=== PATIENT | male | born 1990 | race Caucasian/White ===

== ENCOUNTER 2024-06-15 17:54 | Emergency (ER) | payer BC, SELFPAY ==
--- NOTE | ~2024-06-15 | XR_ITS ---
EXAMINATION: XR chest 2V DATE: 06/15/2024 18:51 INDICATION: Chest pain TECHNIQUE: PA and lateral views of the chest were obtained. COMPARISON: None FINDINGS: The lungs are clear with no focal airspace opacities, pulmonary edema, pleural effusion or pneumothor ax. The cardiomediastinal silhouette is normal. Mild to moderate thoracic spondylosis. IMPRESSION: 1. No acute cardiopulmonary disease. Reviewed, dictated and finalized at location A.
[2024-06-15 17:58] VITALS: BP 154/93; PULSE 104; RESP 18; TEMP 36.5; O2SAT 98
--- NOTE | 2024-06-15 18:43 | ECG_ITS ---
Test Date: 2024-06-15 19:21:14 Measurements Intervals [place] Rate: 84 P: 21 [place]: 145 QRS: 9 QRSD: 93 T: 40 QT: 337 QTc: 398 Interpretive Statements SINUS RHYTHM No previous ECG available for comparison Electronically Signed On 06-16-2024 09:38:57 CDT by Evy Prieto M.D.
--- NOTE | 2024-06-15 18:44 | ED_ITS ---
HPI - Recheck/Abnormal Lab/Rx General Chief Complaint: Recheck/Abnormal Lab/Rx Stated Complaint: htn Time Seen by Provider: 06/15/24 18:44 Focused HPI: This is a 34-year-old male that presents to the emergency department for chest pain. Reports he had an episode of chest pain earlier today which prompted him to take his blood pressure. His blood pressure has been running in the 140s to 150 systolic all day. This concerned him and prompted him to be seen. He has not have known history of hypertension. Reports he feels like his breathing is off . GENERAL: Well-appearing, well-nourished, and in no acute distress. HEAD: Normocephalic, atraumatic. CHEST: Clear to auscultation. ?No respiratory distress. HEART: Regular rate and rhythm.? NEURO: ?Alert and oriented x3. Patient screened in triage and initial orders placed.? ?Additional care and disposition to be based upon?diagnostic testing and treatment. Related Data Allergies Allergy/AdvReac Type Severity Reaction Status Date / Time Sulfa (Sulfonamide AdvReac Unknown Verified 06/15/24 17:58 Antibiotics) Course Vital Signs Vital signs: Vital Signs Temperature 97.7 F 06/15/24 17:58 Pulse Rate 104 H 06/15/24 17:58 Respiratory Rate 18 06/15/24 17:58 Blood Pressure 154/93 H 06/15/24 17:58 Pulse Oximetry 98 06/15/24 17:58 Temperature 97.7 F 06/15/24 17:58 Pulse Rate 104 H 06/15/24 17:58 Respiratory Rate 18 06/15/24 17:58 Blood Pressure 154/93 H 06/15/24 17:58 Pulse Oximetry 98 06/15/24 17:58 Discharge Plan Discharge Follow-up/Referrals: PHYSICIAN,GLUER AND SLICER HAND [Primary Care Provider] -
--- NOTE | 2024-06-15 19:19 | ED.CHESTPAIN ---
HPI - Chest Pain General Chief Complaint: Recheck/Abnormal Lab/Rx Stated Complaint: htn Time Seen by Provider: 06/15/24 18:44 History of Present Illness HPI narrative: Pt has been with his father through recent hospitalization and rehab so has been under a fair amount of stress. Pt says when he dropped off his father this morning about 0800 noticed some heaviness in his left chest. He checked his BP and it was 150's/90's. He checked his Bp every 30 minutes all day and it was around this range though the bottom number got up to the low 100's. Pt has no PCP and has not had any routine medical care. Related Data Allergies Allergy/AdvReac Type Severity Reaction Status Date / Time Sulfa (Sulfonamide AdvReac Unknown Verified 06/15/24 17:58 Antibiotics) Review of Systems Review of Systems: All systems reviewed & are unremarkable except as noted in HPI and below Exam Const: General: healthy appearing and no acute distress Nutritional Appearance: well nourished Orientation/consciousness: patient oriented x3 Limitations: no limitations Chest: Chest palpation & inspection: tenderness (mild upper left chest tenderness to palpation) Resp: Effort & Inspection: normal respiratory effort Auscultation: clear to auscultation bilaterally Cardio: Rate: regular rate Rhythm: regular rhythm GI: GI Palp: Yes Soft to palpation and No Tenderness to palpation present (GI) Auscultation: normal bowel sounds Skin: General skin exam: normal color Wounds: no wounds Neuro: General: moves all extremities and CN's II-XI intact bilaterally Cranial nerves: Yes Nystagmus not present Speech: normal speech Extrem: General: normal to inspection and no clubbing, cyanosis or edema Psych: Mental Status: mental status grossly normal Affect: normal affect Attitude: cooperative Course Vital Signs Vital signs: Vital Signs Temperature 97.7 F 06/15/24 17:58 Pulse Rate 104 H 06/15/24 17:58 Respiratory Rate 18 06/15/24 17:58 Blood Pressure 154/93 H 06/15/24 17:58 Pulse Oximetry 98 06/15/24 17:58 Temperature 98.1 F 06/15/24 19:21 Pulse Rate 87 06/15/24 20:30 Respiratory Rate 19 06/15/24 20:30 Blood Pressure 139/93 H 06/15/24 20:30 Pulse Oximetry 98 10/23/24 20:30 Oxygen Delivery Room Air 06/15/24 19:21 MDM - Chest Pain MDM Narrative Medical decision making narrative: pt has had atypical CP since 0800 and BP has been elevated with frequent checking all day. Doubt cardaic etiology but will get ekg and labs and make sure kidneys and trop and cxr all ok. Lab Data 06/15/24 19:24 06/15/24 19:24 Labs: Lab Results 06/15/24 Range/Units 19:24 WBC 10.2 H (4.5-10.0) K/mm3 RBC 5.04 (4.6-6.20) M/mm3 Hgb 15.8 (14.0-18.0) g/dL Hct 44.8 (42.0-52.0) % MCV 88.9 (80-100) fl MCH 31.3 (26-34) pg MCHC 35.3 (32-36) g/dl RDW 12.7 (11.5-14.5) % Plt Count 249 (150-375) k/mm3 MPV 9.5 (7.4-10.4) fl Immature Gran % (Auto) 0.4 (0-0.5) % Neut % (Auto) 56.4 (45.5-73.1) % Lymph % (Auto) 29.6 (18.3-44.2) % [place] % (Auto) 8.6 H (2.6-8.5) % Eos % (Auto) 4.8 H (0-4.4) % Baso % (Auto) 0.2 (0.2-1.2) % Lymph # (Auto) 3.02 (0.9-3.2) K/mm3 [place] # (Auto) 0.9 H (0.1-0.6) K/mm3 Eos # (Auto) 0.5 H (0-0.3) K/mm3 Baso # (Auto) 0.0 (0.0-0.1) K/mm3 Abs Immat Gran (auto) 0.04 H (0.00-0.031) K/mm3 Absolute Neuts (auto) 5.8 (1.3-6.7) K/mm3 Absolute Nucleated RBC 0.000 (0.0-0.012) K/mm3 Nucleated RBC % 0.0 (0.0-0.2) % PT 13.4 (11.1-14.7) Seconds INR 1.0 APTT 27.5 (22.3-36.8) Seconds Sodium 139 (137-145) mmol/L Potassium 3.8 (3.4-5.0) mmol/L Chloride 103 (98-107) mmol/L Carbon Dioxide 24 (22-30) mmol/L Anion Gap 12 (4-12) mmol/L BUN 16 (9-20) mg/dL Creatinine 0.90 (0.7-1.3) mg/dL Estim Creat Clear Calc 114 ml/min Estimated GFR > 60 (59 - ) Glucose 74 (65-110) mg/dL Calcium 9.4 (8.4-10.2) mg/dL Total Bilirubin 0.4 (0.2-1.3) mg/dL AST 33 (17-59) U/L ALT 35 (6-50) U/L Alkaline Phosphatase 87 (38-126) U/L Troponin I < 0.012 (0.000-0.034) ng/mL Total Protein 8.0 (6.3-8.2) g/dL Albumin 4.8 (3.5-5.1) g/dL Lipase 67 (23-300) U/L ECG Data EKG #1: Interpretation: nsr rate [address] or t wave changes Discharge Plan Discharge Clinical Impression: Hypertension, Atypical chest pain Patient Disposition: Home, Self-Care Condition: Improved Instructions: Antibiotic Form, Hypertension (ED) Additional Instructions: check BP for several days at different times during day and after sitting for a bit. If remains elevated, make appointment with PCP Follow-up/Referrals: PHYSICIAN,STORES CLERK [Non-Staff] - Estevan Moulton MD [Physician] -
[2024-06-15 19:21] VITALS: BP 146/92; PULSE 88; RESP 18; TEMP 36.7; O2SAT 100; O2SAT 96
[2024-06-15 19:31] LABS: Basophils Percent Auto 0.2 % (0.2-1.2); Eosinophils Absolute Auto 0.5 K/mm3 (0-0.3); Eosinophils Percent Auto 4.8 % (0-4.4); Hematocrit 44.8 % (42.0-52.0); Hemoglobin 15.8 g/dL (14.0-18.0); Immature Granulocyte Absolute 0.04 K/mm3 (0.00-0.031); Immature Granulocyte Percent A 0.4 % (0-0.5); Lymphocytes Absolute Auto 3.02 K/mm3 (0.9-3.2); Lymphocytes Percent Auto 29.6 % (18.3-44.2); Mean Corpuscular HGB Conc 35.3 g/dl (32-36); Mean Corpuscular Hemoglobin 31.3 pg (26-34); Mean Corpuscular Volume 88.9 fl (80-100); Mean Platelet Volume 9.5 fl (7.4-10.4); Monocytes Absolute Auto 0.9 K/mm3 (0.1-0.6); Monocytes Percent Auto 8.6 % (2.6-8.5); Neutrophils Absolute Auto 5.8 K/mm3 (1.3-6.7); Neutrophils Percent Auto 56.4 % (45.5-73.1); Platelet Count Result 249 k/mm3 (150-375); Red Blood Count 5.04 M/mm3 (4.6-6.20); Red Cell Distribution Width 12.7 % (11.5-14.5); White Blood Count 10.2 K/mm3 (4.5-10.0)
[2024-06-15 19:41] LABS: Alanine Aminotransferase 35 U/L (6-50); Albumin Level 4.8 g/dL (3.5-5.1); Alkaline Phosphatase 87 U/L (38-126); Anion Gap 12 mmol/L (4-12); Aspartate Amino Transferase 33 U/L (17-59); Bilirubin,Total 0.4 mg/dL (0.2-1.3); Blood Urea Nitrogen 16 mg/dL (9-20); Calcium 9.4 mg/dL (8.4-10.2); Carbon Dioxide 24 mmol/L (22-30); Chloride 103 mmol/L (98-107); Estimated CRCL calculation 114 ml/min; Estimated Glomerular Filt Rate > 60; Glucose 74 mg/dL (65-110); Lipase 67 U/L (23-300); Partial Thromboplastin Time 27.5 Seconds (22.3-36.8); Potassium 3.8 mmol/L (3.4-5.0); Prothrombin Time 13.4 Seconds (11.1-14.7); Sodium 139 mmol/L (137-145)
[2024-06-15 19:52] LABS: Troponin I < 0.012 ng/mL (0.000-0.034)
[2024-06-15 20:30] VITALS: BP 139/93; PULSE 87; RESP 19; O2SAT 98
== END 2024-06-15 20:32 | disposition home or self-care (01) ==
PROVIDERS: Physician Assistant; Emergency Provider Emergency Medicine
DX: I10 Essential (primary) hypertension (principal); R07.89 Other chest pain
CPT/HCPCS: 36415; 71046; 80053; 83690; 84484; 85025; 85610; 85730; 93005; 99284

== ENCOUNTER 2024-06-20 11:26 | Emergency (ER) | payer BC, SELFPAY ==
--- NOTE | ~2024-06-20 | XR_ITS ---
EXAMINATION: XR wrist LT min 3V DATE: 06/20/2024 14:28 INDICATION: Left wrist pain. TECHNIQUE: 4 views of left wrist were obtained. COMPARISON: None. FINDINGS: Alignment is normal. No fracture. Joint spaces are normal. IMPRESSION: 1. Normal left wrist. Reviewed, dictated and finalized at location B. IMPRESSION: 1. Normal left wrist.
--- NOTE | ~2024-06-20 | CT_ITS ---
EXAMINATION: CTA brain carotid DATE: 06/20/2024 14:20 INDICATION: Headache. Blurry vision. TECHNIQUE: Computed tomographic angiography (CTA) of the head was performed without and with 100 mL O [id number] intravenous contrast. CTA of the neck was performed with intravenous contrast. Automated exposure control and iterative reconstruction technique were employed. The dose-length product was 1 750.01 mGy-cm. Maximum intensity projection and volume rendered 3D-reconstructions were created by bernarda schmid technologist on a separate workstation. COMPARISON: None. FINDINGS: HEAD CTA: There is no intracranial hemorrhage, acute infarction, or abnormal intracranial mass lesion . The ventricles are normal in size. The orbits are normal. There is mild mucosal thickening in the p aranasal sinuses. The mastoid air cells are normal. The vertebral arteries are codominant. There is n o significant stenosis of basilar artery or the posterior cerebral arteries. There is no significant stenosis of the intracranial internal carotid arteries or anterior or middle cerebral arteries. Anter ior communicating artery is normal. There is no aneurysm. NECK CTA: There are no pathologically enlarged lymph nodes. There is no significant stenosis of the v ertebral arteries. There is no visible plaque in the proximal internal carotid. There is 0% stenosis of the proximal right internal carotid artery relative to normal distal artery lumen diameter (NASCET criteria). There is 0% stenosis of the proximal left internal carotid artery relative to normal dist al artery lumen diameter. There is mild cervical spondylosis. IMPRESSION: 1. Normal brain. No aneurysm or significant intracranial arterial stenosis 2. 0% stenosis of the proximal internal carotid arteries relative to normal distal artery lumen diame ters (NASCET criteria). Reviewed, dictated and finalized at location B. IMPRESSION: 1. Normal brain. No aneurysm or significant intracranial arterial stenosis 2. 0% stenosis of the proximal internal carotid arteries relative to normal dis avtar artery lumen diameters (NASCET criteria).
--- NOTE | ~2024-06-20 | XR_ITS ---
EXAMINATION: XR chest 2V DATE: 06/20/2024 14:28 INDICATION: Chest pressure. TECHNIQUE: Frontal and lateral views of the chest were obtained. COMPARISON: Chest 2 views 06/15/2024 FINDINGS: There is no pneumonia, pleural effusion, or pneumothorax. The heart size is normal. IMPRESSION: 1. No acute cardiopulmonary disease. Reviewed, dictated and finalized at location B.
--- NOTE | ~2024-06-20 | XR_ITS ---
EXAMINATION: XR shoulder LT min 2V DATE: 06/20/2024 14:28 INDICATION: Left arm tingling. Chest pressure. TECHNIQUE: 4 views of left shoulder were obtained. COMPARISON: None. FINDINGS: Alignment is normal. No fracture. Joint spaces are normal. IMPRESSION: 1. Normal left shoulder. Reviewed, dictated and finalized at location B. IMPRESSION: 1. Normal left shoulder.
[2024-06-20 11:36] VITALS: BP 145/92; PULSE 78; RESP 15; TEMP 36.4; O2SAT 99
--- NOTE | 2024-06-20 12:25 | ECG_ITS ---
Test Date: 2024-06-20 13:29:27 Measurements Intervals [place] Rate: 74 P: 26 [place]: 159 QRS: 36 QRSD: 101 T: 44 QT: 376 QTc: 418 Interpretive Statements SINUS RHYTHM Compared to ECG 06/15/2024 19:21:14 No significant changes Electronically Signed On 06-20-2024 13:33:53 CDT by Max Bill M.D.
[2024-06-20 12:58] LABS: Basophils Percent Auto 0.3 % (0.2-1.2); Eosinophils Absolute Auto 0.4 K/mm3 (0-0.3); Hematocrit 42.8 % (42.0-52.0); Hemoglobin 14.9 g/dL (14.0-18.0); Immature Granulocyte Absolute 0.03 K/mm3 (0.00-0.031); Immature Granulocyte Percent A 0.4 % (0-0.5); Lymphocytes Absolute Auto 2.01 K/mm3 (0.9-3.2); Lymphocytes Percent Auto 28.9 % (18.3-44.2); Mean Corpuscular HGB Conc 34.8 g/dl (32-36); Mean Corpuscular Hemoglobin 31.6 pg (26-34); Mean Corpuscular Volume 90.7 fl (80-100); Mean Platelet Volume 9.6 fl (7.4-10.4); Monocytes Absolute Auto 0.5 K/mm3 (0.1-0.6); Monocytes Percent Auto 6.9 % (2.6-8.5); Neutrophils Absolute Auto 4.1 K/mm3 (1.3-6.7); Neutrophils Percent Auto 58.5 % (45.5-73.1); Platelet Count Result 237 k/mm3 (150-375); Red Blood Count 4.72 M/mm3 (4.6-6.20); Red Cell Distribution Width 12.6 % (11.5-14.5)
[2024-06-20] MEDS: KETOROLAC (*BKC) 60 MG/2 ML VIAL IM (13:00)
[2024-06-20 13:08] LABS: Alanine Aminotransferase 38 U/L (6-50); Albumin Level 4.6 g/dL (3.5-5.1); Alkaline Phosphatase 90 U/L (38-126); Anion Gap 9 mmol/L (4-12); Aspartate Amino Transferase 40 U/L (17-59); Bilirubin,Total 0.5 mg/dL (0.2-1.3); Blood Urea Nitrogen 14 mg/dL (9-20); Calcium 9.2 mg/dL (8.4-10.2); Carbon Dioxide 26 mmol/L (22-30); Chloride 105 mmol/L (98-107); Estimated CRCL calculation 130 ml/min; Estimated Glomerular Filt Rate > 60; Glucose 103 mg/dL (65-110); Potassium 3.9 mmol/L (3.4-5.0); Prothrombin Time 13.1 Seconds (11.1-14.7); Sodium 140 mmol/L (137-145)
[2024-06-20 13:09] LABS: Partial Thromboplastin Time 24.8 Seconds (22.3-36.8)
[2024-06-20 13:19] LABS: Troponin I < 0.012 ng/mL (0.000-0.034)
--- NOTE | 2024-06-20 13:21 | ED.GENADULT ---
HPI - General Adult General Chief complaint: Eye Problems Stated complaint: blurry vision, back pain Time Seen by Provider: 06/20/24 12:01 History of Present Illness HPI narrative: Patient is a 34-year-old male who presents ER with multiple complaints. He was sent here on the recommendation of his PCP. He was seen here on 06/15/2024 as well. During his last ER visit he was seen for elevated blood pressures. Patient has had increased anxiety and concern about his health since his dad became diagnosed with Parkinson's and began suffering other medical issues. Patient reports that recently when he uses his left arm and grabs things against developed numbness and tingling into the fingers and pain into the shoulder and left side. He also has some pain in the left posterior shoulder/ back. No known trauma. No exertional chest pain or back pain. No nausea or vomiting. Reports he has also had mild headache with occasional vision change in left eye. No history of migraine. No history of CVA. His PCP wanted him to have a CT scan of the head. Related Data Allergies Allergy/AdvReac Type Severity Reaction Status Date / Time Sulfa (Sulfonamide AdvReac Unknown Verified 06/15/24 17:58 Antibiotics) Review of Systems Review of Systems: All systems reviewed & are unremarkable except as noted in HPI and below Constitutional: Constitutional: Reports no additional constitutional complaints ENT: Reports system reviewed and no additional complaints, except as documented PMFSH Past Medical History Medical History (Updated 06/20/24 @ 16:36 by Jose Patel MD) Healthy adult male Surgical History Surgical History (Updated 06/20/24 @ 15:42 by Jose Patel MD) No pertinent past surgical history Exam Narrative: GENERAL: Well-appearing, well-nourished, and in no acute distress. HEAD: Normocephalic, atraumatic. EYES: PERRL and EOMI. 20/30 visual acuity in each eye. ENT: Mucous membranes moist. NECK: Supple. tender palpation left trapezius musculature without midline tenderness. CHEST: Clear to auscultation. No respiratory distress. HEART: Regular rate and rhythm. Normal peripheral pulses. EXTREMITIES: Normal range of motion. No edema. Positive carpal tunnel compression test left wrist. SKIN: Warm, dry, no rash. NEURO: Alert and oriented x3. PSYCH: Normal mood and affect. Course Vital Signs Vital signs: Vital Signs Temperature 97.6 F 06/20/24 11:36 Pulse Rate 78 06/20/24 11:36 Respiratory Rate 15 06/20/24 11:36 Blood Pressure 145/92 H 06/20/24 11:36 Pulse Oximetry 99 06/20/24 11:36 Oxygen Delivery Room Air 06/20/24 11:36 Temperature 97.6 F 06/20/24 11:36 Pulse Rate 69 06/20/24 14:29 Respiratory Rate 15 06/20/24 14:29 Blood Pressure 142/95 H 06/20/24 14:29 Pulse Oximetry 97 06/20/24 14:29 Oxygen Delivery Room Air 06/20/24 11:36 Medical Decision Making Vital Signs Vital Signs: Vital Signs Temperature 97.6 F 06/20/24 11:36 Pulse Rate 78 06/20/24 11:36 Respiratory Rate 15 06/20/24 11:36 Blood Pressure 145/92 H 06/20/24 11:36 Pulse Oximetry 99 06/20/24 11:36 Oxygen Delivery Room Air 06/20/24 11:36 Temperature 97.6 F 06/20/24 11:36 Pulse Rate 69 06/20/24 14:29 Respiratory Rate 15 06/20/24 14:29 Blood Pressure 142/95 H 06/20/24 14:29 Pulse Oximetry 97 06/20/24 14:29 Oxygen Delivery Room Air 06/20/24 11:36 Lab Data 06/20/24 12:51 06/20/24 12:51 Labs: Lab Results 06/20/24 Range/Units 12:51 WBC 7.0 (4.5-10.0) K/mm3 RBC 4.72 (4.6-6.20) M/mm3 Hgb 14.9 (14.0-18.0) g/dL Hct 42.8 (42.0-52.0) % MCV 90.7 (80-100) fl MCH 31.6 (26-34) pg MCHC 34.8 (32-36) g/dl RDW 12.6 (11.5-14.5) % Plt Count 237 (150-375) k/mm3 MPV 9.6 (7.4-10.4) fl Immature Gran % (Auto) 0.4 (0-0.5) % Neut % (Auto) 58.5 (45.5-73.1) % Lymph % (Auto) 28.9 (18.3-44.2) % [place] % (Auto) 6.9 (2.6-8.5) % Eos % (Auto) 5.0 H (0-4.4) % Baso % (Auto) 0.3 (0.2-1.2) % Lymph # (Auto) 2.01 (0.9-3.2) K/mm3 [place] # (Auto) 0.5 (0.1-0.6) K/mm3 Eos # (Auto) 0.4 H (0-0.3) K/mm3 Baso # (Auto) 0.0 (0.0-0.1) K/mm3 Abs Immat Gran (auto) 0.03 (0.00-0.031) K/mm3 Absolute Neuts (auto) 4.1 (1.3-6.7) K/mm3 Absolute Nucleated RBC 0.000 (0.0-0.012) K/mm3 Nucleated RBC % 0.0 (0.0-0.2) % PT 13.1 (11.1-14.7) Seconds INR 1.0 APTT 24.8 (22.3-36.8) Seconds Sodium 140 (137-145) mmol/L Potassium 3.9 (3.4-5.0) mmol/L Chloride 105 (98-107) mmol/L Carbon Dioxide 26 (22-30) mmol/L Anion Gap 9 (4-12) mmol/L BUN 14 (9-20) mg/dL Creatinine 0.80 (0.7-1.3) mg/dL Estim Creat Clear Calc 130 ml/min Estimated GFR > 60 (59 - ) Glucose 103 (65-110) mg/dL Calcium 9.2 (8.4-10.2) mg/dL Total Bilirubin 0.5 (0.2-1.3) mg/dL AST 40 (17-59) U/L ALT 38 (6-50) U/L Alkaline Phosphatase 90 (38-126) U/L Troponin I < 0.012 (0.000-0.034) ng/mL Total Protein 8.0 (6.3-8.2) g/dL Albumin 4.6 (3.5-5.1) g/dL Imaging Data Radiologist's impression: ITS Impressions Head/Neck CTA 06/20/24 14:20 IMPRESSION: 1. Normal brain. No aneurysm or significant intracranial arterial stenosis 2. 0% stenosis of the proximal internal carotid arteries relative to normal distal artery lumen diameters (NASCET criteria). Chest X-Ray 06/20/24 14:37 IMPRESSION: 1. No acute cardiopulmonary disease. Shoulder X-Ray 06/20/24 14:37 IMPRESSION: 1. Normal left shoulder. Wrist X-Ray 06/20/24 14:38 IMPRESSION: 1. Normal left wrist. Discharge Plan Discharge Clinical Impression: Carpal tunnel syndrome, Shoulder pain, Headache Patient Disposition: Home, Self-Care Condition: Stable Instructions: Carpal Tunnel Syndrome (DC), General Headache (ED) Additional Instructions: Return ER if you have chest pain with exertion, you cannot keep down food /water / medication, or you have loss of vision. Prescriptions: New naproxen 375 mg tablet 375 mg PO BID Qty: 14 0RF Follow-up/Referrals: Estevan Moulton MD [Physician] - 1 Week UNKNOWN,DOCTOR [Primary Care Provider] -
[2024-06-20 14:29] VITALS: BP 142/95; PULSE 69; RESP 15; O2SAT 97
[2024-06-20 17:18] VITALS: BP 144/90; PULSE 72; RESP 14; O2SAT 99
== END 2024-06-20 17:26 | disposition home or self-care (01) ==
PROVIDERS: Emergency Provider Emergency Medicine
DX: M25.512 Pain in left shoulder (principal); R51.9 Headache, unspecified; G56.02 Carpal tunnel syndrome, left upper limb
CPT/HCPCS: 36415; 70496; 70498; 71046; 73030; 73110; 80053; 84484; 85025; 85610; 85730; 93005; 96372; 99284; J1885; Q9967

== ENCOUNTER 2024-08-08 17:07 | Emergency (ER) | payer BC, SELFPAY ==
--- NOTE | ~2024-08-08 | CT_ITS ---
EXAMINATION: CT brain wo con DATE: 08/08/2024 19:38 INDICATION: Headache. TECHNIQUE: Computed tomography (CT) of the head was performed without intravenous contrast. The mA wa s adjusted according to patient size. Iterative reconstruction technique was employed. The dose-lengt h product was 605.33 mGy-cm. COMPARISON: Head CT 06/20/2024 FINDINGS: There is no intracranial hemorrhage, acute infarction, or abnormal intracranial mass lesion . The ventricles are normal in size. The orbits are normal. There is mucosal thickening in the parana cale sinuses. The mastoid air cells are normal. IMPRESSION: 1. Normal brain. Reviewed, dictated and finalized at location A. [facility] IMPRESSION: 1. Normal brain.
[2024-08-08 17:55] VITALS: BP 138/88; PULSE 88; RESP 18; TEMP 36.8; O2SAT 97
--- NOTE | 2024-08-08 17:59 | ED_ITS ---
HPI - Headache General Chief Complaint: Headache <Jamie SaldañaHALLIEN - Last Filed: 08/08/24 18:00> Stated Complaint: HEADACHE,SWOLLEN LYMPH NODES,N/V <Jamie BadillonasreenmanojSAULO - Last Filed: 08/08/24 18:00> Time Seen by Provider: 08/08/24 19:13 <Jamie BadillonasreenmanojHALLIEN - Last Filed: 08/08/24 18:00> 34-year-old male presents with headache, light sensitive, nausea vomiting, subjective fever since Thursday. patient denies any medical problem. no relief with [id number] medication GENERAL: Well-appearing, well-nourished, and in no acute distress. HEAD: Normocephalic, atraumatic. EYES: PERRLA and EOMI. photophobia ENT: Nares clear, no rhinorrhea or epistaxis. Mucous membranes moist. NECK: Supple. CHEST: Clear to auscultation. No respiratory distress. HEART: Regular rate and rhythm. No murmur heard. Normal peripheral pulses. ABDOMEN: Soft, nontender, nondistended, normal active bowel sounds. nausea EXTREMITIES: Normal range of motion. No edema. SKIN: Warm, dry, no rash. NEURO: No focal deficits. Alert and oriented x3. PSYCH: Normal mood and affect. <Jamie CroninrabiamanojSAULO - Last Filed: 08/08/24 18:00> 34-year-old male presents with headache, light sensitive, nausea, vomiting, subjective fever since Thursday. patient denies any medical problem. no relief with [id number] medication. Reports history of headaches, but they had improved after recently getting glasses GENERAL: Well-appearing, well-nourished, and in no acute distress. HEAD: Normocephalic, atraumatic. EYES: PERRLA and EOMI. photophobia ENT: Nares clear, no rhinorrhea or epistaxis. Mucous membranes moist. NECK: Supple. CHEST: Clear to auscultation. No respiratory distress. HEART: Regular rate and rhythm. No murmur heard. Normal peripheral pulses. ABDOMEN: Soft, nontender, nondistended, normal active bowel sounds. nausea EXTREMITIES: Normal range of motion. No edema. SKIN: Warm, dry, no rash. NEURO: No focal deficits. Alert and oriented x3. PSYCH: Normal mood and affect. <Nasreen Ballard PA-C - Last Filed: 08/09/24 01:12> Related Data Allergies/Adverse Reactions: Allergies Allergy/AdvReac Type Severity Reaction Status Date / [facility] Allergy Mild Unknown Verified 08/08/24 17:09 Sulfa (Sulfonamide AdvReac Unknown Verified 08/08/24 17:09 Antibiotics) <Jamie SAULO Saldaña - Last Filed: 08/08/24 18:00> Review of Systems 2 Review of Systems: CONSTITUTIONAL: Reports subjective fever EYES: Denies visual changes GASTROINTESTINAL: Reports nausea, vomiting NEUROLOGIC: Reports headache. Denies numbness, or weakness. <Nasreen Ballard PA-C - Last Filed: 08/09/24 01:12> All systems reviewed & are unremarkable except as noted in HPI and below < Nasreen Ballard PA-C - Last Filed: 08/09/24 01:12> PMFSH Past Medical History Medical History: Medical History (Updated 08/09/24 @ 01:09 by Nasreen Ballard PA-C) Healthy adult male <Jamiemanoj Saldaña APRN - Last Filed: 08/08/24 18:00> Surgical History Surgical History: Surgical History (Updated 06/20/24 @ 15:42 by Jose Patel MD) No pertinent past surgical history <Jamie Saldaña APRN - Last Filed: 08/08/24 18:00> Social History Social History: Social History (Updated 08/08/24 @ 19:32 by Nasreen Ballard PA-C) Smoking status: Never smoker <Jamie Saldaña APRN - Last Filed: 08/08/24 18:00> Exam 2 Narrative: GENERAL: Well-appearing, well-nourished, and in no acute distress. HEAD: Normocephalic, atraumatic. EYES: PERRLA and EOMI. ENT: Nares clear, no rhinorrhea or epistaxis. Mucous membranes moist. Oropharynx without tonsillar hypertrophy exudate or other lesions. Bilateral TMs pearly paredes non-bulging NECK: Supple. No adenopathy or masses. Normal ROM CHEST: Clear to auscultation. No respiratory distress. No wheezes rales or rhonchi HEART: Regular rate and rhythm. No murmur heard. Normal peripheral pulses. EXTREMITIES: Normal range of motion. No edema. Strength equal in bilateral upper and lower extremities (5/5) SKIN: Warm, dry, no rash. NEURO: No focal deficits. Alert and oriented x3. CN II-XII grossly intact PSYCH: Normal mood and affect <Nasreen Ballard PA-C - Last Filed: 08/09/24 01:12> Course Course Emergency Course: patient updated on workup and agrees with plan of care <Nasreen Ballard PA-C - Last Filed: 08/09/24 01:12> Vital Signs Vital signs: Vital Signs Temperature 98.2 F 08/08/24 17:55 Pulse Rate 88 08/08/24 17:55 Respiratory Rate 18 08/08/24 17:55 Blood Pressure 138/88 08/08/24 17:55 Pulse Oximetry 97 08/08/24 17:55 Oxygen Delivery Room Air 08/08/24 17:55 Temperature 98.2 F 08/08/24 17:55 Pulse Rate 92 08/08/24 22:31 Respiratory Rate 16 08/08/24 22:31 Blood Pressure 146/68 H 08/08/24 22:31 Pulse Oximetry 98 08/08/24 22:31 Oxygen Delivery Room Air 08/08/24 17:55 <Jamie Saldaña APRN - Last Filed: 08/08/24 18:00> Vital Signs Temperature 98.2 F 08/08/24 17:55 Pulse Rate 88 08/08/24 17:55 Respiratory Rate 18 08/08/24 17:55 Blood Pressure 138/88 08/08/24 17:55 Pulse Oximetry 97 08/08/24 17:55 Oxygen Delivery Room Air 08/08/24 17:55 Temperature 98.2 F 08/08/24 17:55 Pulse Rate 92 08/08/24 22:31 Respiratory Rate 16 08/08/24 22:31 Blood Pressure 146/68 H 08/08/24 22:31 Pulse Oximetry 98 08/08/24 22:31 Oxygen Delivery Room Air 08/08/24 17:55 <Nasreen Ballard PA-C - Last Filed: 08/09/24 01:12> MDM - Headache MDM Narrative Medical decision making narrative: Patient presents to the emergency department for headaches ongoing over the last several days. No recent injuries or trauma. Patient is neurologically intact. He is afebrile and nontoxic appearing. CBC with mild leukocytosis to 12.3. Could be from recent vomiting. Metabolic panel without concerning findings. Influenza and COVID screens are negative. CT brain without acute findings. Patient given migraine cocktail with some improvement. He does still endorse a headache. Offered admission for further pain control, evaluation. He declines at this time. He is to have close follow up with PCP. He was given warnings to return to the ER <Nasreen Ballard PA-C - Last Filed: 08/09/24 01:12> Differential Diagnosis Differential diagnosis: Likely migraine, tension headache, headache, sinusitis and other (covid, influenza, brain mass) <Nasreen Ballard PA-C - Last Filed: 08/09/24 01:12> Lab Data Attestation: I reviewed the patient's lab results. <Nasreen Ballard PA-C - Last Filed: 08/09/24 01:12> Result diagrams: 08/08/24 18:28 08/08/24 18:28 <Jamie Saldaña APRN - Last Filed: 08/08/24 18:00> Labs: Lab Results 08/08/24 Range/Units 18:28 WBC 12.3 H (4.5-10.0) K/mm3 RBC 4.89 (4.6-6.20) M/mm3 Hgb 15.2 (14.0-18.0) g/dL Hct 43.2 (42.0-52.0) % MCV 88.3 (80-100) fl MCH 31.1 (26-34) pg MCHC 35.2 (32-36) g/dl RDW 12.3 (11.5-14.5) % Plt Count 238 (150-375) k/mm3 MPV 9.4 (7.4-10.4) fl Immature Gran % (Auto) 0.2 (0-0.5) % Neut % (Auto) 84.7 H (45.5-73.1) % Lymph % (Auto) 8.5 L (18.3-44.2) % Nobles % (Auto) 5.9 (2.6-8.5) % Eos % (Auto) 0.5 (0-4.4) % Baso % (Auto) 0.2 (0.2-1.2) % Lymph # (Auto) 1.04 (0.9-3.2) K/mm3 Nobles # (Auto) 0.7 H (0.1-0.6) K/mm3 Eos # (Auto) 0.1 (0-0.3) K/mm3 Baso # (Auto) 0.0 (0.0-0.1) K/mm3 Abs Immat Gran (auto) 0.03 (0.00-0.031) K/mm3 Absolute Neuts (auto) 10.4 H (1.3-6.7) K/mm3 Absolute Nucleated RBC 0.000 (0.0-0.012) K/mm3 Nucleated RBC % 0.0 (0.0-0.2) % Sodium 138 (137-145) mmol/L Potassium 4.2 (3.4-5.0) mmol/L Chloride 104 (98-107) mmol/L Carbon Dioxide 26 (22-30) mmol/L Anion Gap 8 (4-12) mmol/L BUN 12 (9-20) mg/dL Creatinine 0.90 (0.7-1.3) mg/dL Estim Creat Clear Calc 116 ml/min Estimated GFR > 60 (59 - ) Glucose 102 (65-110) mg/dL Calcium 9.3 (8.4-10.2) mg/dL Magnesium 2.1 (1.6-2.3) mg/dL Total Bilirubin 0.7 (0.2-1.3) mg/dL AST 32 (17-59) U/L ALT 33 (6-50) U/L Alkaline Phosphatase 106 (38-126) U/L Total Protein 8.0 (6.3-8.2) g/dL Albumin 4.8 (3.5-5.1) g/dL Influenza A (RT-PCR) Negative (Negative) Influenza B (RT-PCR) Negative (Negative) SARS-CoV-2 RNA (RT-PCR) Negative (Negative) <Jamie Saldaña, SAULO - Last Filed: 08/08/24 18:00> Lab Results 08/08/24 Range/Units 18:28 WBC 12.3 H (4.5-10.0) K/mm3 RBC 4.89 (4.6-6.20) M/mm3 Hgb 15.2 (14.0-18.0) g/dL Hct 43.2 (42.0-52.0) % MCV 88.3 (80-100) fl MCH 31.1 (26-34) pg MCHC 35.2 (32-36) g/dl RDW 12.3 (11.5-14.5) % Plt Count 238 (150-375) k/mm3 MPV 9.4 (7.4-10.4) fl Immature Gran % (Auto) 0.2 (0-0.5) % Neut % (Auto) 84.7 H (45.5-73.1) % Lymph % (Auto) 8.5 L (18.3-44.2) % Nobles % (Auto) 5.9 (2.6-8.5) % Eos % (Auto) 0.5 (0-4.4) % Baso % (Auto) 0.2 (0.2-1.2) % Lymph # (Auto) 1.04 (0.9-3.2) K/mm3 Nobles # (Auto) 0.7 H (0.1-0.6) K/mm3 Eos # (Auto) 0.1 (0-0.3) K/mm3 Baso # (Auto) 0.0 (0.0-0.1) K/mm3 Abs Immat Gran (auto) 0.03 (0.00-0.031) K/mm3 Absolute Neuts (auto) 10.4 H (1.3-6.7) K/mm3 Absolute Nucleated RBC 0.000 (0.0-0.012) K/mm3 Nucleated RBC % 0.0 (0.0-0.2) % Sodium 138 (137-145) mmol/L Potassium 4.2 (3.4-5.0) mmol/L Chloride 104 (98-107) mmol/L Carbon Dioxide 26 (22-30) mmol/L Anion Gap 8 (4-12) mmol/L BUN 12 (9-20) mg/dL Creatinine 0.90 (0.7-1.3) mg/dL Estim Creat Clear Calc 116 ml/min Estimated GFR > 60 (59 - ) Glucose 102 (65-110) mg/dL Calcium 9.3 (8.4-10.2) mg/dL Magnesium 2.1 (1.6-2.3) mg/dL Total Bilirubin 0.7 (0.2-1.3) mg/dL AST 32 (17-59) U/L ALT 33 (6-50) U/L Alkaline Phosphatase 106 (38-126) U/L Total Protein 8.0 (6.3-8.2) g/dL Albumin 4.8 (3.5-5.1) g/dL Influenza A (RT-PCR) Negative (Negative) Influenza B (RT-PCR) Negative (Negative) SARS-CoV-2 RNA (RT-PCR) Negative (Negative) <Nasreen Ballard PA-C - Last Filed: 08/09/24 01:12> Imaging Data Radiologist's impression: ITS Impressions Head CT 08/08/24 19:42 IMPRESSION: 1. Normal brain. <Nasreen Ballard PA-C - Last Filed: 08/09/24 01:12> Critical Care Time Critical Care Time Critical Care Time: No <Nasreen Ballard PA-C - Last Filed: 08/09/24 01:12> Discharge Plan Discharge Clinical Impression: Headache Qualifiers: Headache type: unspecified Headache chronicity pattern: chronic headache I ntractability: not intractable Qualified Code(s): R51.9 - Headache, unspecified <Jamie Saldaña APRN - Last Filed: 08/08/24 18:00> Patient Disposition: Home, Self-Care <Jamie Saldaña APRN - Last Filed: 08/08/24 18:00> Condition: Improved <Jamie Saldaña APRN - Last Filed: 08/08/24 18:00> Instructions: Acute Headache (ED) <Jamie Saldaña APRN - Last Filed: 08/08/24 18:00> Additional Instructions: Return to the emergency department if you experience fever, stiff neck, visual changes, numbness, weakness, or any other symptoms that are concerning to you Rest. Remain well hydrated. Over the counter pain medication as needed. Nausea medication as needed Follow up with neurology for your headaches <Jamie Saldaña APRN - Last Filed: 08/08/24 18:00> Patient Language: [place]se <Jamie Saldaña APRN - Last Filed: 08/08/24 18:00> Prescriptions: No Action naproxen 375 mg tablet 375 mg PO BID Qty: 14 0RF <Jamie Saldaña APRN - Last Filed: 08/08/24 18:00> Follow-up/Referrals: Mary Bliss MD [Physician] - Estevan Moulton MD [Primary Care Provider] - <Jamie Saldaña APRN - Last Filed: 08/08/24 18:00>
[2024-08-08] MEDS: ONDANSETRON INJ 4 MG/2 ML VIAL IV PUSH (18:23)
[2024-08-08] MEDS: KETOROLAC 30 MG/ML VIAL (*BKC) IV PUSH (18:23)
[2024-08-08 18:35] LABS: Basophils Percent Auto 0.2 % (0.2-1.2); Eosinophils Absolute Auto 0.1 K/mm3 (0-0.3); Eosinophils Percent Auto 0.5 % (0-4.4); Hematocrit 43.2 % (42.0-52.0); Hemoglobin 15.2 g/dL (14.0-18.0); Immature Granulocyte Absolute 0.03 K/mm3 (0.00-0.031); Immature Granulocyte Percent A 0.2 % (0-0.5); Lymphocytes Absolute Auto 1.04 K/mm3 (0.9-3.2); Lymphocytes Percent Auto 8.5 % (18.3-44.2); Mean Corpuscular HGB Conc 35.2 g/dl (32-36); Mean Corpuscular Hemoglobin 31.1 pg (26-34); Mean Corpuscular Volume 88.3 fl (80-100); Mean Platelet Volume 9.4 fl (7.4-10.4); Monocytes Absolute Auto 0.7 K/mm3 (0.1-0.6); Monocytes Percent Auto 5.9 % (2.6-8.5); Neutrophils Absolute Auto 10.4 K/mm3 (1.3-6.7); Neutrophils Percent Auto 84.7 % (45.5-73.1); Platelet Count Result 238 k/mm3 (150-375); Red Blood Count 4.89 M/mm3 (4.6-6.20); Red Cell Distribution Width 12.3 % (11.5-14.5); White Blood Count 12.3 K/mm3 (4.5-10.0)
[2024-08-08 18:46] LABS: Alanine Aminotransferase 33 U/L (6-50); Albumin Level 4.8 g/dL (3.5-5.1); Alkaline Phosphatase 106 U/L (38-126); Anion Gap 8 mmol/L (4-12); Aspartate Amino Transferase 32 U/L (17-59); Bilirubin,Total 0.7 mg/dL (0.2-1.3); Blood Urea Nitrogen 12 mg/dL (9-20); Calcium 9.3 mg/dL (8.4-10.2); Carbon Dioxide 26 mmol/L (22-30); Chloride 104 mmol/L (98-107); Estimated CRCL calculation 116 ml/min; Estimated Glomerular Filt Rate > 60; Glucose 102 mg/dL (65-110); Magnesium 2.1 mg/dL (1.6-2.3); Potassium 4.2 mmol/L (3.4-5.0); Sodium 138 mmol/L (137-145)
[2024-08-08 19:10] LABS: Influenza A QL RT-PCR Negative (Negative); Influenza B QL RT-PCR Negative (Negative); SARS-CoV-2 RNA PCR Negative (Negative)
[2024-08-08] MEDS: SODIUM CHLORIDE 0.9% IV 1,000 ML 999 ML IV CONT ×2 (19:29→22:48)
[2024-08-08] MEDS: ACETAMINOPHEN 500 MG TABLET 1000 MG PO (19:29)
[2024-08-08 19:33] VITALS: BP 144/92; PULSE 96; RESP 15; O2SAT 99
[2024-08-08] MEDS: diphenhydrAMINE HCl INJ 50 MG/ML VIAL 25 MG IV PUSH (21:40)
[2024-08-08] MEDS: METOCLOPRAMIDE HCL INJ 10 MG/2 ML VIAL IV PUSH (21:40)
[2024-08-08 22:31] VITALS: BP 146/68; PULSE 92; RESP 16; O2SAT 98
[2024-08-08] MEDS: dexAMETHasone SOD PHOS INJ 10 MG/ML 1 ML VIAL IV PUSH (23:54)
[2024-08-08] MEDS: SUMAtriptan SUCCINATE 6 MG/0.5 ML VIAL SUB-Q (23:54)
[2024-08-09] MEDS: MAGNESIUM SULF 1 GM/D5W 100 ML 1 GM/100 ML BAG IVPB
[2024-08-09 01:22] VITALS: BP 134/68; PULSE 87; RESP 15; O2SAT 100
== END 2024-08-09 01:24 | disposition home or self-care (01) ==
PROVIDERS: Nurse Practitioner Family; Emergency Provider Physician Assistant; PCP Emergency Medicine
DX: R51.9 Headache, unspecified (principal); Z20.822 Contact with and (suspected) exposure to COVID-19
CPT/HCPCS: 36415; 70450; 80053; 83735; 85025; 87636; 96361; 96365; 96375; 99284; A9270; J1100; J1200; J1885; J2405; J2765; J3030; J3475; J7030